=== PATIENT | male | born 1975 | race African-American/Black ===

== ENCOUNTER 2018-10-12 01:10 | Inpatient (IN) | payer OTHER ==
[~2018-10-12] VITALS: Ht 180.3 cm; Wt 96.6 kg
[2018-10-12] MEDS ORDERED: MVI, ADULT NO.4 WITH VIT K 10 ML VIAL IV ONE (01:20)
[2018-10-12] MEDS ORDERED: THIAMINE 200 MG/2 ML VIAL. IV ONE (01:20)
[2018-10-12] MEDS ORDERED: FOLIC ACID 5 MG/ML SYRINGE for ER IV ONE (01:21)
[2018-10-12] MEDS ORDERED: IV RINGERS SOLUTION,LACTATED 1,000 ML IV SCH (01:26)
[2018-10-12] MEDS ORDERED: SODIUM BICARB ADULT 8.4% 50 MEQ/50 ML DISP.SYRIN. IV ONE (01:30)
[2018-10-12] MEDS ORDERED: MAGNESIUM HYDROXIDE 2,400 MG/30 ML ORAL.SUSP. PO ONE (01:30)
[2018-10-12] MEDS ORDERED: MVI, ADULT NO.4 WITH VIT K 10 ML, FOLIC ACID SYRINGE for ER 1 MG, THIAMINE INJ 100 MG i... IV ONE ×4 (01:30)
--- NOTE | 2018-10-12 01:49 | ED.ADGEN ---
Past History Past Medical History: Depression, Other Alcohol Use: Heavy Adult General Chief Complaint Chief Complaint ".. I took 5 Ambien....... and Trazadone ....one..... and drank ...... about liter of bourbon whiskey..... I am depressed... .. I was trying... To kill myself.... .I wanted...... to.... sleep..... and.... never wake up..... Been having a fight with my lady.... . I did.....try to kill myself .... once before.. teenager ... I cut my wrist... 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 Ambien was 5 mg in the trazodone 50 mg. Patient reportedly has consumed approximately 1 L of bourbon whiskey today.. Recently in arguments with his significant other. Patient admits to history of depression. Did have 1 previous suicide attempt as a teenager when he cut his wrists. Patient denies any recent overseas appointments. No recent travel. Up-to-date with vaccinations. Normally follows at [facility]. Denies history of PTSD. Pt. has approx. 17 yrs service. Review of Systems Review of Systems Patient has no complaints other than he is depressed Constitutional: Denies fever or chills [] Eyes: Denies change in visual acuity, redness, or eye pain [] HENT: Denies nasal congestion or sore throat [] Respiratory: Denies cough or shortness of breath [] Cardiovascular: No additional information not addressed in HPI [] GI: Denies abdominal pain, nausea, vomiting, bloody stools or diarrhea [] : Denies dysuria or hematuria [] Musculoskeletal: Denies back pain or joint pain [] Integument: Denies rash or skin lesions [] Neurologic: Denies headache, focal weakness or sensory changes [] Endocrine: Denies polyuria or polydipsia [] All other systems were reviewed and found to be within normal limits, except as documented in this note. Family History Family History Noncontributory Current Medications Current Medications Current Medications Medications (Trade) Dose Ordered Sig/Adi Start Time Stop Time Status Last Admin Dose Admin Folic Acid (FOLIC ACID SYRINGE for ER) 5 mg STK-MED ONCE 10/12/18 01:21 10/12/18 01:22 DC Lactated Ringer's 1,000 ml @ 1,000 mls/hr Q1H 10/12/18 01:26 10/12/18 02:25 DC 10/12/18 01:32 1,000 MLS/HR Lorazepam (Ativan Inj) 2 mg 1X PRN PRN 10/12/18 02:30 Magnesium Hydroxide (Milk Of Magnesia) 2,400 mg 1X ONCE 10/12/18 01:30 10/12/18 01:37 DC 10/12/18 01:36 2,400 MG Multivitamins/ Minerals (Infuvite Adult) 10 ml STK-MED ONCE 10/12/18 01:20 10/12/18 01:21 DC Multivitamins/ Minerals 10 ml/ Folic Acid 1 mg/ Thiamine HCl 100 mg/Lactated Ringer's 1,011.2 ml @ 1,011.2 mls/hr 1X ONCE 10/12/18 01:30 10/12/18 02:29 DC 10/12/18 01:33 1,011.2 MLS/HR Sodium Bicarbonate (Sodium Bicarb Adult 8.4% Syr) 50 meq 1X ONCE 10/12/18 01:30 10/12/18 01:37 DC 10/12/18 01:36 50 MEQ Thiamine HCl (Thiamine Vial) 200 mg STK-MED ONCE 10/12/18 01:20 10/12/18 01:21 DC Allergies Allergies Allergies Coded Allergies Type Severity Reaction Last Updated Verified No Known Drug Allergies 10/12/18 No Physical Exam Physical Exam Constitutional: Well developed, well nourished, no acute distress, and intoxicated in appearance. [] HENT: Normocephalic, atraumatic, bilateral external ears normal, oropharynx moist, no oral exudates, nose normal. [] Eyes: PERRLA, EOMI, conjunctiva normal, no discharge. [] Neck: Normal range of motion, no tenderness, supple, no stridor. [] Cardiovascular:Heart rate regular rhythm, no murmur [] Lungs & Thorax: Bilateral breath sounds clear to auscultation [] Abdomen: Bowel sounds normal, soft, no tenderness, no masses, no pulsatile masses. [] Skin: Warm, dry, no erythema, no rash. [] Back: No tenderness, no CVA tenderness. [] Extremities: No tenderness, no cyanosis, no clubbing, ROM intact, no edema. [] Well muscled Neurologic: Alert and oriented X 3, but very sedated, slurred speech, moves all extremities on request., Distal sensory function, no gross focal deficits noted. Appears very intoxicated requires stimulation to stay awake. Does any questions .. sometimes unclear. Psychologic: Affect flat, judgement limited insight at times, mood depressed. Current Patient Data Vital Signs Vital Signs Date Time Temp Pulse Resp B/P (MAP) Pulse Ox O2 Delivery O2 Flow Rate FiO2 10/12/18 01:10 97.6 77 18 99 Room Air Lab Results Laboratory Tests Test 10/12/18 01:14 10/12/18 01:26 White Blood Count 3.7 x10^3/uL (4.0-11.0) L Red Blood Count 5.13 x10^6/uL (4.30-5.70) Hemoglobin 15.1 g/dL (13.0-17.5) Hematocrit 46.4 % (39.0-53.0) Mean Corpuscular Volume 91 fL (79-100) Mean Corpuscular Hemoglobin 30 pg (25-35) Mean Corpuscular Hemoglobin Concent 33 g/dL (31-37) Red Cell Distribution Width 14.8 % (11.5-14.5) H Platelet Count 220 x10^3/uL (140-400) Neutrophils (%) (Auto) 57 % (31-73) Lymphocytes (%) (Auto) 33 % (24-48) Monocytes (%) (Auto) 9 % (0-9) Eosinophils (%) (Auto) 1 % (0-3) Basophils (%) (Auto) 0 % (0-3) Neutrophils # (Auto) 2.1 x10^3uL (1.8-7.7) Lymphocytes # (Auto) 1.2 x10^3/uL (1.0-4.8) Monocytes # (Auto) 0.3 x10^3/uL (0.0-1.1) Eosinophils # (Auto) 0.0 x10^3/uL (0.0-0.7) Basophils # (Auto) 0.0 x10^3/uL (0.0-0.2) Prothrombin Time 9.9 SEC (9.4-11.4) Prothrombin Time INR 1.0 (0.9-1.1) PTT 26 SEC (23-33) D-Dimer (Dorina) 0.21 mg/L (0.00-0.50) Sodium Level 142 mmol/L (136-145) Potassium Level 3.5 mmol/L (3.5-5.1) Chloride Level 104 mmol/L (98-107) Carbon Dioxide Level 28 mmol/L (21-32) Anion Gap 10 (6-14) Blood Urea Nitrogen 11 mg/dL (8-26) Creatinine 1.6 mg/dL (0.7-1.3) H Estimated GFR (Cockcroft-Gault) 47.6 Glucose Level 96 mg/dL (70-99) Calcium Level 9.0 mg/dL (8.5-10.1) Magnesium Level 2.5 mg/dL (1.8-2.4) H Total Bilirubin 0.3 mg/dL (0.2-1.0) Direct Bilirubin 0.1 mg/dL (0.0-0.2) Aspartate Amino Transferase (AST) 35 U/L (15-37) Alanine Aminotransferase (ALT) 35 U/L (16-63) Alkaline Phosphatase 62 U/L (46-116) Creatine Kinase 537 U/L (39-308) H Troponin I Quantitative < 0.017 ng/mL (0-0.055) DB-Vvy-R-Type Natriuretic Peptide 13 pg/mL (0-124) Total Protein 7.2 g/dL (6.4-8.2) Albumin 4.0 g/dL (3.4-5.0) Lipase 91 U/L (73-393) Salicylates Level 0.9 mg/dL (2.8-20.0) L Salicylate Last Dose Date Unknown Salicylate Last Dose Time Unknown Acetaminophen Level < 2.0 mcg/mL (10-30) L Acetaminophen Last Dose Date Unknown Acetaminophen Last Dose Time Unknown Ethyl Alcohol Level 184 mg/dL (0-10) H Blood pH 7.33 (7.35-7.46) L Blood Gas PCO2 46 mmHg (35-46) Blood Gas PO2 74 mmHg (80-100) L Blood Gas HCO3 24 mmol/L (21-28) Arterial Bld O2 Saturation (Calc) 94 % (92-99) FiO2 21 % EKG EKG My interpretation of EKG shows sinus 85, anteroseptal contour changes, no findings of acute STEMI with contra lateral changes. [] Radiology/Procedures Radiology/Procedures My interpretation of chest x-ray shows no acute cardiopulmonary findings. Cardiac silhouette is somewhat borderline.[] Course & Med Decision Making Course & Med Decision Making Pertinent Labs and Imaging studies reviewed. (See chart for details) Discussed with poison control. Patient admitted to for further eval. and tx. At some point will need referral for evaluation for depression issues. Currently maintain airway without problem, is easily arousable with verbal request. [] Final Impression Final Impression 1. OD Ambien, Trazadone, ETOH 2. Suicide Attempt 3. Depression[] 4. ETOH Intoxication 184 5. Elevated Mag. 2.5 6. Elevated CK 537 7. Elevated Creat. 1.6 Dragon Disclaimer Dragon Disclaimer This electronic medical record was generated, in whole or in part, using a voice recognition dictation system. Discharge Summary Visit Information Final Diagnosis Problems Medical Problems: (1) Overdose Status: Acute Brief Hospital Course Allergies Allergies Coded Allergies Type Severity Reaction Last Updated Verified No Known Drug Allergies 10/12/18 No Vital Signs Vital Signs Date Time Temp Pulse Resp B/P (MAP) Pulse Ox O2 Delivery O2 Flow Rate FiO2 10/12/18 01:10 97.6 77 18 99 Room Air Lab Results Laboratory Tests Test 10/12/18 01:14 10/12/18 01:26 White Blood Count 3.7 x10^3/uL (4.0-11.0) Red Blood Count 5.13 x10^6/uL (4.30-5.70) Hemoglobin 15.1 g/dL (13.0-17.5) Hematocrit 46.4 % (39.0-53.0) Mean Corpuscular Volume 91 fL (79-100) Mean Corpuscular Hemoglobin 30 pg (25-35) Mean Corpuscular Hemoglobin Concent 33 g/dL (31-37) Red Cell Distribution Width 14.8 % (11.5-14.5) Platelet Count 220 x10^3/uL (140-400) Neutrophils (%) (Auto) 57 % (31-73) Lymphocytes (%) (Auto) 33 % (24-48) Monocytes (%) (Auto) 9 % (0-9) Eosinophils (%) (Auto) 1 % (0-3) Basophils (%) (Auto) 0 % (0-3) Neutrophils # (Auto) 2.1 x10^3uL (1.8-7.7) Lymphocytes # (Auto) 1.2 x10^3/uL (1.0-4.8) Monocytes # (Auto) 0.3 x10^3/uL (0.0-1.1) Eosinophils # (Auto) 0.0 x10^3/uL (0.0-0.7) Basophils # (Auto) 0.0 x10^3/uL (0.0-0.2) Prothrombin Time 9.9 SEC (9.4-11.4) Prothromb Time International Ratio 1.0 (0.9-1.1) Activated Partial Thromboplast Time 26 SEC (23-33) D-Dimer (Dorina) 0.21 mg/L (0.00-0.50) Sodium Level 142 mmol/L (136-145) Potassium Level 3.5 mmol/L (3.5-5.1) Chloride Level 104 mmol/L (98-107) Carbon Dioxide Level 28 mmol/L (21-32) Anion Gap 10 (6-14) Blood Urea Nitrogen 11 mg/dL (8-26) Creatinine 1.6 mg/dL (0.7-1.3) Estimated GFR (Cockcroft-Gault) 47.6 Glucose Level 96 mg/dL (70-99) Calcium Level 9.0 mg/dL (8.5-10.1) Magnesium Level 2.5 mg/dL (1.8-2.4) Total Bilirubin 0.3 mg/dL (0.2-1.0) Direct Bilirubin 0.1 mg/dL (0.0-0.2) Aspartate Amino Transf (AST/SGOT) 35 U/L (15-37) Alanine Aminotransferase (ALT/SGPT) 35 U/L (16-63) Alkaline Phosphatase 62 U/L (46-116) Creatine Kinase 537 U/L (39-308) Troponin I Quantitative < 0.017 ng/mL (0-0.055) XJ-Gik-Y-Type Natriuretic Peptide 13 pg/mL (0-124) Total Protein 7.2 g/dL (6.4-8.2) Albumin 4.0 g/dL (3.4-5.0) Lipase 91 U/L (73-393) Salicylates Level 0.9 mg/dL (2.8-20.0) Salicylate Last Dose Date Unknown Salicylate Last Dose Time Unknown Acetaminophen Level < 2.0 mcg/mL (10-30) Acetaminophen Last Dose Date Unknown Acetaminophen Last Dose Time Unknown Ethyl Alcohol Level 184 mg/dL (0-10) Blood Gas pH 7.33 (7.35-7.46) Blood Gas PCO2 46 mmHg (35-46) Blood Gas PO2 74 mmHg (80-100) Blood Gas HCO3 24 mmol/L (21-28) Arterial Bld O2 Saturation (Calc) 94 % (92-99) FiO2 21 % Brief Hospital 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, ETOH, Trazadone- Suicidal Attempt Discharge Information Condition at Discharge: Stable Dischare Medications Current Medications Thiamine HCl (Thiamine Vial) 200 mg STK-MED ONCE IV ; Start 10/12/18 at 01:20; Stop 10/12/18 at 01:21; Status DC Multivitamins/ Minerals (Infuvite Adult) 10 ml STK-MED ONCE IV ; Start 10/12/18 at 01:20; Stop 10/12/18 at 01:21; Status DC Folic Acid (FOLIC ACID SYRINGE for ER) 5 mg STK-MED ONCE IV ; Start 10/12/18 at 01:21; Stop 10/12/18 at 01:22; Status DC Lactated Ringer's 1,000 ml @ 1,000 mls/hr Q1H IV Last administered on 10/12/18at 01:32; Admin Dose 1,000 MLS/HR; Start 10/12/18 at 01:26; Stop 10/12/18 at 02:25; Status DC Multivitamins/ Minerals 10 ml/ Folic Acid 1 mg/ Thiamine HCl 100 mg/Lactated Ringer's 1,011.2 ml @ 1,011.2 mls/hr 1X ONCE IV Last administered on 10/12/18at 01:33; Admin Dose 1,011.2 MLS/HR; Start 10/12/18 at 01:30; Stop 10/12/18 at 02:29; Status DC Sodium Bicarbonate (Sodium Bicarb Adult 8.4% Syr) 50 meq 1X ONCE IV Last administered on 10/12/18at 01:36; Admin Dose 50 MEQ; Start 10/12/18 at 01:30; Stop 10/12/18 at 01:37; Status DC Magnesium Hydroxide (Milk Of Magnesia) 2,400 mg 1X ONCE PO Last administered on 10/12/18at 01:36; Admin Dose 2,400 MG; Start 10/12/18 at 01:30; Stop 10/12/18 at 01:37; Status DC Lorazepam (Ativan Inj) 2 mg 1X PRN PRN IV SEIZURE; Start 10/12/18 at 02:30 Dragon Disclaimer This chart was dictated in whole or in part using Voice Recognition software in a busy, high-work load, and often noisy Emergency Department environment. It may contain unintended and wholly unrecognized errors or omissions. MAR DODGE MD Oct 12, 2018 01:49
[2018-10-12 01:54] LABS: ETHANOL 184 mg/dL (0-10); SALIC 0.9 mg/dL (2.8-20.0)
--- NOTE | 2018-10-12 02:03 | EKG ---
[address] [address] Test Date: 2018-10-12 Test Time: 01:21:33 Pat Name: ANNELIESE ESTRELLA Department: Room: Gender: M Demolition Specialist: KARMEN : 1975 Requested By: MAR DODGE Order Number: [id number] Reading MD: Measurements Intervals Bath Rate: 85 P: 62 TN: 194 QRS: 66 QRSD: 88 T: 16 QT: 378 QTc: 450 Interpretive Statements SINUS RHYTHM QRS(T) CONTOUR ABNORMALITY CONSIDER ANTEROSEPTAL MYOCARDIAL DAMAGE POSSIBLY ABNORMAL ECG RI6.01 No previous ECG available for comparison
[2018-10-12 02:04] LABS: ACETAMIN < 2.0 mcg/mL (10-30)
[2018-10-12 02:05] LABS: CREATININE 1.6 mg/dL (0.7-1.3); GFR 47.6; POTASSIUM 3.5 mmol/L (3.5-5.1); TOTAL BILIRUBIN 0.3 mg/dL (0.2-1.0); TOTAL PROTEIN 7.2 g/dL (6.4-8.2)
[2018-10-12 02:06] LABS: DIRECT BILIRUBIN 0.1 mg/dL (0.0-0.2); MAGNESIUM 2.5 mg/dL (1.8-2.4)
[2018-10-12 02:15] LABS: BASO % 0 % (0-3); EOS % 1 % (0-3); HEMATOCRIT 46.4 % (39.0-53.0); HEMOGLOBIN 15.1 g/dL (13.0-17.5); LYMPH # 1.2 x10^3/uL (1.0-4.8); LYMPH % 33 % (24-48); MEAN CORPUSCULAR HEMOGLOBIN 30 pg (25-35); MEAN CORPUSCULAR HGB CONC 33 g/dL (31-37); MEAN CORPUSCULAR VOLUME 91 fL (79-100); MONO # 0.3 x10^3/uL (0.0-1.1); MONO % 9 % (0-9); NEUT # 2.1 x10^3uL (1.8-7.7); NEUT % 57 % (31-73); PLATELET COUNT 220 x10^3/uL (140-400); RED BLOOD COUNT 5.13 x10^6/uL (4.30-5.70); RED CELL DISTRIBUTION WIDTH 14.8 % (11.5-14.5); WHITE BLOOD COUNT 3.7 x10^3/uL (4.0-11.0)
[2018-10-12 03:40] VITALS: BP 152/103
[2018-10-12 04:59] VITALS: BP 154/102
[2018-10-12 06:17] VITALS: BP 156/103
[2018-10-12 06:59] LABS: ACETAMIN < 2.0 mcg/mL (10-30)
[2018-10-12 07:00] VITALS: BP 160/107
[2018-10-12 07:00] LABS: SALIC < 0.2 mg/dL (2.8-20.0)
[2018-10-12 08:00] VITALS: BP 160/107
[2018-10-12 08:07] LABS: BILIRUBIN,URINE NEG (NEG); CLARITY,URINE CLEAR; COLOR,URINE YELLOW; GLUCOSE,URINE NEG (NEG)
[2018-10-12 08:08] LABS: BACTERIA,URINE 0 /HPF (0-FEW); NITRITE,URINE NEG (NEG); RBC,URINE RARE /HPF (0-2); SQUAMOUS EPITHELIAL CELL,UR OCC /LPF; UROBILINOGEN,URINE 0.2 mg/dL (0.2 mg/dL); WBC,URINE RARE /HPF (0-4)
--- NOTE | 2018-10-12 08:12 | RAD ---
Chest radiograph 10/12/2018 1:13 AM INDICATION: Overdose COMPARISON: None available TECHNIQUE: Frontal view of the chest is provided. FINDINGS: The cardiomediastinal silhouette is within normal limits. There are no pleural effusions. There is no pulmonary vascular congestion. There is no pneumothorax. The lungs are clear. No significant osseous abnormality is identified. IMPRESSION: No acute cardiopulmonary process. Electronically signed by: Jen Garcia MD (10/12/2018 8:09 AM) [facility]
[2018-10-12 08:14] LABS: BARBITURATES NEG (NEG); BENZODIAZEPINES NEG (NEG); CANNABINOIDS NEG (NEG); COCAINE NEG (NEG); METHADONE NEG (NEG); OPIATES NEG (NEG); PHENCYCLIDINE NEG (NEG)
[2018-10-12 08:17] LABS: AMPHETAMINE/METHAMPHETAMINE NEG (NEG)
[2018-10-12] MEDS ORDERED: MVI, ADULT NO.4 WITH VIT K 10 ML, FOLIC ACID SYRINGE for ER 1 MG, THIAMINE INJ 100 MG i... IV SCH ×4 (09:00)
[2018-10-12 09:56] VITALS: BP 160/107
--- NOTE | 2018-10-12 18:58 | SSS ---
ADMIT DATE: 10/12/2018 HISTORY OF PRESENT ILLNESS: The patient is a 42-year-old -[place] male patient who apparently was brought to the Emergency Room as he apparently took 5 Ambien, trazodone and drank about 1 liter of bourbon whiskey. Stated that he is depressed and tried to kill himself, wanted to sleep and never wake up as he is having a fight with his . Apparently, he did try to kill himself once before when he was a teenager, cut his wrist. 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 He denied any recent overseas appointment. No recent travel, up to date with vaccination. He normally follows with his primary care physician at [facility]. He has approximately 17 years of services. He was evaluated in the Emergency Room. His lab work showed that he did have a slightly elevated creatinine, CPK of 557, magnesium of 2.5. His blood alcohol level was 184 and urinalysis was unremarkable. He was admitted to the ICU for one-on-one sitter. PAST MEDICAL HISTORY: Unremarkable. Apparently, he has what seems to be labile hypertension and chronic low back pain. PAST SURGICAL HISTORY: Unremarkable. ALLERGIES: He has no known drug allergies. MEDICATIONS: Apparently, he is on Ambien, diazepam and trazodone prescribed by psychiatrist. FAMILY HISTORY: He has 1 brother and 2 sisters, all younger and healthy. His father is 63 and mother is 63, also both healthy. SOCIAL HISTORY: He is , has 1 son and 2 daughters. He does not smoke cigarettes, but chew tobacco. He drinks alcohol occasionally. Has not had alcohol since almost 2 months now according to him. He does not use any drugs and he works as an IT officer. PHYSICAL EXAMINATION: GENERAL: On arrival to the Emergency Room, he apparently was very sedated with slurred speech; however, he moves all his extremities on request. He was very intoxicated and required stimulation to stay awake. VITAL SIGNS: His heart rate was 77 and blood pressure 152/103, temperature was 98, respiratory rate was 18 and oxygen saturation was 96% on 2 liters of oxygen. HEENT: Normocephalic, atraumatic. NECK: Supple. HEART: Showed normal first and second heart sounds. No gallop, rub or murmur. CHEST: Clear to auscultation. No crepitation or rhonchi. ABDOMEN: Distended, soft, nontender. No guarding or rigidity. No organomegaly. All hernial orifice intact. Bowel sounds normal. NEUROLOGIC: He was very intoxicated, but without any obvious lateralizing sign. LABORATORY DATA: On admission showed a white cell count of 3700, hemoglobin 15, hematocrit 46, MCV 91, platelet count 220,000. His arterial blood gas showed a pH of 7.33, pCO2 of 46, pO2 of 74, bicarbonate 24, and oxygen saturation was 94% on FiO2 of 21%. His prothrombin time, INR, aPTT with D-dimer are all normal. Serum sodium 142, potassium 3.5, chloride 104, bicarbonate 28, anion gap of 10, BUN 11, creatinine 1.6, estimated GFR was 47.6, glucose was 96, calcium was 9, magnesium was 2.5. Total bilirubin, AST, ALT, alkaline phosphatase were normal. CK was 537. Total protein 7.2, albumin 4 and serum lipase was 91. His urinalysis was essentially unremarkable and his tox screen was ____. Tox screen was negative for salicylates, acetaminophen, barbiturate, phencyclidine, amphetamine, methamphetamine, benzodiazepine, cocaine, cannabinoids. Had a chest x-ray which showed that the cardiomediastinal silhouette is within normal limits. There are no pleural effusions. There is no pulmonary vascular congestion. There is no pneumothorax. Lungs are clear. No significant osseous abnormalities identified. When he woke up this morning he apparently was completely awake, alert, oriented to time, place and person and he has decided to leave against medical advice. He was persuaded to stay and apparently was contacted by the tele psych and apparently the tele psych team stated that they cannot put him on involuntary hold as he denies any suicidal ideation and told him that he does not want to . He states that he did not take all the medication to but just wanted to ____ forward thinking and wants to work things out. He is already counseling at the OR. As he has been awake, alert, decision was made to discharge him home to follow with his psych team and his primary care physician at the [facility]. ANGY DIAZ MD DR: Hero JOB#: [id number] / [id number]
[2018-10-15 09:18] LABS: BGAS PH 7.34 (7.35-7.46)
== END 2018-10-12 10:45 | disposition home or self-care (01) | DRG 918 ==
LOC: ER 01:10 → ICU 02:42
PROVIDERS: ADMIT Internal Medicine; ATTEND Internal Medicine
DX: T43.212A Poisoning by selective serotonin and norepinephrine reuptake inhibitors, intentional self-harm, initial encounter (principal); F32.9 Major depressive disorder, single episode, unspecified; G89.29 Other chronic pain; I10 Essential (primary) hypertension; Z91.5 Personal history of self-harm; Z72.0 Tobacco use; Y92.89 Other specified places as the place of occurrence of the external cause
CPT/HCPCS: 36415; 36600; 71045; 80048; 80076; 80307; 80329; 81001; 82550; 82803; 83690; 83735; 83880; 84443; 84484; 85025; 85379; 85610; 85730; 87641; 93005; 96365; 96375; G0480; J7120; 82003; 99285-25